=== PATIENT | female | born 1970 | race Caucasian/White ===

== ENCOUNTER 2023-06-20 11:09 | Emergency (ER) | payer MEDICAID ==
[~2023-06-20] VITALS: Ht 167.6 cm; Wt 85.0 kg
[2023-06-20 11:43] VITALS: TEMP 98; O2SAT 99
[2023-06-20 15:45] VITALS: BP 109/75; PULSE 70; RESP 18
[2023-06-20] MEDS ORDERED: KETOROLAC 60MG/2ML VIAL IM ONE (15:45)
[2023-06-20] MEDS ORDERED: HYDROCODONE/ACETAMINOPHEN 10/325MG TABLET PO ONE (15:45)
[2023-06-20] MEDS ORDERED: TRAM50TA3 MT (16:12)
[2023-06-20] MEDS ORDERED: DICL75TA5 MT (16:12)
== END 2023-06-20 17:05 | disposition home or self-care (01) ==
LOC: ER 11:09
DX: M16.11 Unilateral primary osteoarthritis, right hip (principal)
CPT/HCPCS: 99283; 96372; J1885